=== PATIENT | male | born 1930 | race Caucasian/White ===

== ENCOUNTER → 2016-07-01 | Outpatient (REF) ==
[~2016-07-01] MED LIST: AMOXICILLIN 50500 MG PO; ASPI325T6 PO; ASPIR-LOW81 MG PO; ASPIR-LOX325 MG PO; ASPIRIN 81M81 MG/TA2 PO; ASPIRIN E.C. 8181 MG PO; BACTRIM DS 8001 TAB PO; BETAPACE 80MG80 MG PO; CALCIUM; CEFTIN 250250 MG/TAB PO; CEPHALEXIN250 M1 PO; CEPHALEXIN500 M1 PO; CIPRO 500MG TA500 MG PO; COLACE 100100 MG/CAP PO; DOXAZOCIN; EYE DROPS; FLAGYL500 MG PO; FLOMAX 0.40.4 MG/CAP PO; GLUCOSAMINE & C1 CAP PO; GLYCOLAX17 GM/PACK PO; HCTZ; HCTZ 25MG TAB25 MG PO; IPRATROPIUM BROM3 M1 IH; LASIX 20MG TABL20 MG PO; LASIX 40MG TABL40 MG PO; LEVAQUIN 5500 MG/TA1 PO; LEVAQUIN 750MG750 M1 PO; LIPITOR 10MG10 MG PO; LIPITOR 80MG80 MG PO; LOPRESSOR 225 MG/TAB PO; LOVENOX 4040 MG/0.4 SQ; MACRODANTIN100 PO; MIRALAX PA17 GM/Dose PO; MULTAQ400 MG PO; NEURONTIN100 MG/CAP PO; NEURONTIN300 MG/CAP PO; NITROSTAT0.4 MG/TAB SL; NORCO 325 MG-51 TAB PO; NORCO 325 MG-7.1 TAB PO; NORVASC 10MG10 MG PO; NORVASC 5MG5 MG/TAB PO; PLAVIX 75MG TAB75 MG PO; PRAVACHOL 20MG20 MG PO; PREDNISONE20 MG PO; PROTONIX 40MG T40 MG PO; PROTONIX20 MG PO; TESSALON P100 MG/CAP PO; TYLENOL 325MG325 MG PO; ULTRAM 50MG TAB50 MG PO; ZEBETA 5MG5 MG PO; ZESTRIL40 MG PO
[2016-07-01 09:34] LABS: BASO # 0.1 (0.0-0.2); BASO % 1.1 % (0.0-2.0); EOS % 12.1 % (0-4.0); GRAN # 5.4 (1.4-6.5); GRAN % 64.7 % (42.2-75.2); LYMPH % 11.7 % (20.0-51.0); MEAN CELL VOLUME 91 fl (80.0-100.0); MEAN CORPUSCULAR HGB CONC 33 g/dl (33.0-37.0); MEAN PLATELET VOLUME 9.5 fl (7.4-10.4); MONO # 0.8 (0.1-0.6); MONO % 9.3 % (1.7-9.3); PLATELET COUNT 424 K/mm3 (130-400); RED BLOOD COUNT 3.02 M/mm3 (4.20-5.60); REDCELL DISTRIBUTION WIDTH-CV 15.8 % (11.5-14.5); WHITE BLOOD COUNT 8.4 K/mm3 (4.8-10.8)
[2016-07-01 09:38] LABS: ADJUSTED CALCIUM 9.5 mg/dL (8.4-10.2); ALBUMIN 2.6 gm/dL (3.5-5.0); BILIRUBIN,TOTAL 0.7 mg/dL (0.0-1.0); CALCIUM 8.4 mg/dL (8.4-10.2); CREATININE, serum 1.2 mg/dL (0.66-1.25); POTASSIUM 3.5 mmol/L (3.4-5.0); TOTAL PROTEIN 5.5 gm/dL (6.4-8.2)
[2016-07-01 09:39] LABS: HEMATOCRIT 27.4 % (42.0-52.0); HEMOGLOBIN 8.9 g/dl (13.5-18.0); MEAN CORPUSCULAR HEMOGLOBIN 29 pg (27.0-31.0)
[2016-07-01 10:11] LABS: C-REACTIVE PROTEIN 2.3 mg/dL (0.0-0.9)
== END ==
LOC: ZLAB.STJ 09:22
DX: Z01.89 Encounter for other specified special examinations (principal)

== ENCOUNTER → 2016-07-04 | Outpatient (REF) ==
[2016-07-04 12:35] LABS: INFLUENZA B NEGATIVE
== END ==
LOC: ZLAB.STJ 12:10
PROVIDERS: Internal Medicine
DX: Z01.89 Encounter for other specified special examinations (principal)

== ENCOUNTER → 2016-07-07 | Outpatient (REF) ==
[2016-07-07 14:25] LABS: BASO % 0.5 % (0.0-2.0); EOS # 0.3 (0.0-0.7); EOS % 5.1 % (0-4.0); GRAN # 4.4 (1.4-6.5); GRAN % 74.4 % (42.2-75.2); LYMPH # 0.6 (1.2-3.4); LYMPH % 10.8 % (20.0-51.0); MEAN CELL VOLUME 93 fl (80.0-100.0); MEAN CORPUSCULAR HGB CONC 32 g/dl (33.0-37.0); MONO # 0.5 (0.1-0.6); MONO % 8.5 % (1.7-9.3); PLATELET COUNT 370 K/mm3 (130-400); RED BLOOD COUNT 3.32 M/mm3 (4.20-5.60); REDCELL DISTRIBUTION WIDTH-CV 15.2 % (11.5-14.5); WHITE BLOOD COUNT 5.9 K/mm3 (4.8-10.8)
[2016-07-07 14:38] LABS: ALBUMIN 2.9 gm/dL (3.5-5.0); BILIRUBIN,TOTAL 0.7 mg/dL (0.0-1.0); C-REACTIVE PROTEIN 2.5 mg/dL (0.0-0.9); CALCIUM 8.1 mg/dL (8.4-10.2); CREATININE, serum 1.45 mg/dL (0.66-1.25); POTASSIUM 3.6 mmol/L (3.4-5.0); TOTAL PROTEIN 6.2 gm/dL (6.4-8.2)
[2016-07-07 14:55] LABS: HEMATOCRIT 30.8 % (42.0-52.0); HEMOGLOBIN 9.8 g/dl (13.5-18.0); MEAN CORPUSCULAR HEMOGLOBIN 30 pg (27.0-31.0)
== END ==
LOC: ZLAB.STJ 14:22
PROVIDERS: Internal Medicine
DX: Z01.89 Encounter for other specified special examinations (principal)

== ENCOUNTER → 2016-07-14 | Outpatient (REF) ==
[2016-07-14 09:41] LABS: ADJUSTED CALCIUM 9.1 mg/dL (8.4-10.2); ALANINE AMINOTRANSFERASE 36 U/L (21-72); ALKALINE PHOSPHATASE 90 U/L (50-136); ANION GAP 8 mmol/L (7-16); BILIRUBIN,TOTAL 0.8 mg/dL (0.0-1.0); BLOOD UREA NITROGEN 28 mg/dL (9-20); C-REACTIVE PROTEIN 1.5 mg/dL (0.0-0.9); CALCIUM 8.3 mg/dL (8.4-10.2); CARBON DIOXIDE 28 mmol/L (22-30); CHLORIDE 101 mmol/L (98-107); CREATININE, serum 1.27 mg/dL (0.66-1.25); GLUCOSE 90 mg/dL (74-106); POTASSIUM 3.8 mmol/L (3.4-5.0); SODIUM 138 mmol/L (137-145); TOTAL PROTEIN 6.5 gm/dL (6.4-8.2)
[2016-07-14 09:46] LABS: CREATINE KINASE < 20 U/L (55-170)
== END ==
LOC: ZLAB.STJ 09:14
PROVIDERS: Internal Medicine
DX: Z01.89 Encounter for other specified special examinations (principal)

== ENCOUNTER → 2016-07-15 | Outpatient (REF) ==
[2016-07-15 09:02] LABS: BASO # 0.1 (0.0-0.2); BASO % 0.5 % (0.0-2.0); EOS % 10.8 % (0-4.0); GRAN # 5.8 (1.4-6.5); GRAN % 62.8 % (42.2-75.2); LYMPH # 1.5 (1.2-3.4); LYMPH % 16.1 % (20.0-51.0); MEAN CELL VOLUME 91 fl (80.0-100.0); MEAN CORPUSCULAR HGB CONC 32 g/dl (33.0-37.0); MONO # 0.7 (0.1-0.6); PLATELET COUNT 403 K/mm3 (130-400); RED BLOOD COUNT 3.93 M/mm3 (4.20-5.60); REDCELL DISTRIBUTION WIDTH-CV 15.4 % (11.5-14.5); WHITE BLOOD COUNT 9.2 K/mm3 (4.8-10.8)
[2016-07-15 09:08] LABS: HEMATOCRIT 35.9 % (42.0-52.0); HEMOGLOBIN 11.4 g/dl (13.5-18.0); MEAN CORPUSCULAR HEMOGLOBIN 29 pg (27.0-31.0)
== END ==
LOC: ZLAB.STJ 08:58
PROVIDERS: Internal Medicine
DX: Z01.89 Encounter for other specified special examinations (principal)

== ENCOUNTER → 2016-07-29 | Outpatient (CLI) | payer MEDICARE, BC, OTHER | LOC: COL.RAD 11:41 | DX: J84.9 Interstitial pulmonary disease, unspecified (principal) ==

== ENCOUNTER → 2016-09-05 | Outpatient (CLI) | payer MEDICARE, BC | LOC: COL.RAD 14:50 | DX: R06.02 Shortness of breath (principal); J84.10 Pulmonary fibrosis, unspecified; J98.4 Other disorders of lung ==

== ENCOUNTER 2016-12-14 06:15 | Emergency (ER) | payer MEDICARE, BC ==
[~2016-12-14] VITALS: Ht 195.6 cm; Wt 87.7 kg
[~2016-12-14 06:15] MED LIST changes: -AMOXICILLIN 50500 MG PO; -BACTRIM DS 8001 TAB PO; -BETAPACE 80MG80 MG PO; -CEFTIN 250250 MG/TAB PO
[2016-12-14 06:17] VITALS: TEMP 97.4
[2016-12-14 07:18] LABS: BASO # 0.1 (0.0-0.2); EOS # 0.3 (0.0-0.7); EOS % 4.2 % (0-4.0); GRAN # 4.9 (1.4-6.5); GRAN % 66.2 % (42.2-75.2); HEMATOCRIT 40.7 % (42.0-52.0); HEMOGLOBIN 12.8 g/dl (13.5-18.0); LYMPH # 1.2 (1.2-3.4); LYMPH % 16.9 % (20.0-51.0); MEAN CELL VOLUME 84 fl (80.0-100.0); MEAN CORPUSCULAR HEMOGLOBIN 26 pg (27.0-31.0); MEAN CORPUSCULAR HGB CONC 31 g/dl (33.0-37.0); MEAN PLATELET VOLUME 10.4 fl (7.4-10.4); MONO # 0.8 (0.1-0.6); MONO % 10.9 % (1.7-9.3); PLATELET COUNT 332 K/mm3 (130-400); RED BLOOD COUNT 4.85 M/mm3 (4.20-5.60); REDCELL DISTRIBUTION WIDTH-CV 17.2 % (11.5-14.5); WHITE BLOOD COUNT 7.3 K/mm3 (4.8-10.8)
[2016-12-14 07:22] LABS: ADJUSTED CALCIUM 9.1 mg/dL (8.4-10.2); ALBUMIN 3.3 gm/dL (3.5-5.0); BILIRUBIN,TOTAL 1.1 mg/dL (0.0-1.0); CALCIUM 8.5 mg/dL (8.4-10.2); CREATININE, serum 1.75 mg/dL (0.66-1.25); POTASSIUM 4.3 mmol/L (3.4-5.0); TOTAL PROTEIN 6.2 gm/dL (6.4-8.2)
[2016-12-14 07:34] LABS: TROPONIN-I 0.017 ng/mL (0.000-0.034)
[2016-12-14 08:45] LABS: PH 5 (5-8); SQUAMOUS EPITHELIAL None Seen /hpf; URINE APPEARANCE Clear; URINE BACTERIA None Seen /hpf; URINE BILIRUBIN Negative (NEGATIVE); URINE BLOOD 1+ (NEGATIVE); URINE COLOR Yellow; URINE GLUCOSE Negative (NEGATIVE); URINE KETONE Negative (NEGATIVE); URINE UROBILINOGEN Negative (NEGATIVE)
[2016-12-14] MEDS ORDERED: FLOMAX 0.40.4 MG/CAP PO (09:06)
[2016-12-14] MEDS ORDERED: BACTRIM DS 8001 TAB PO (09:06)
[2016-12-14 09:22] VITALS: BP 119/72; PULSE 65
== END 2016-12-14 09:26 | disposition home or self-care (01) ==
LOC: COL.ER 06:15
PROVIDERS: Emergency Medicine
DX: N39.0 Urinary tract infection, site not specified (principal); N40.1 Benign prostatic hyperplasia with lower urinary tract symptoms; N13.8 Other obstructive and reflux uropathy; I11.0 Hypertensive heart disease with heart failure; I50.9 Heart failure, unspecified; J44.9 Chronic obstructive pulmonary disease, unspecified; Z87.891 Personal history of nicotine dependence; I42.9 Cardiomyopathy, unspecified; I25.10 Atherosclerotic heart disease of native coronary artery without angina pectoris; Z95.5 Presence of coronary angioplasty implant and graft; Z95.0 Presence of cardiac pacemaker

== ENCOUNTER 2016-12-19 22:48 | Emergency (ER) | payer MEDICARE, BC ==
[~2016-12-19] VITALS: Ht 195.6 cm; Wt 87.7 kg
[~2016-12-19 22:48] MED LIST changes: +BACTRIM DS 8001 TAB PO
[2016-12-19 22:52] VITALS: TEMP 97.4
[2016-12-20 00:25] VITALS: BP 117/96; PULSE 67
== END 2016-12-20 00:25 | disposition home or self-care (01) ==
LOC: COL.ER 22:48
DX: N40.1 Benign prostatic hyperplasia with lower urinary tract symptoms (principal); R33.8 Other retention of urine; I10 Essential (primary) hypertension; J84.10 Pulmonary fibrosis, unspecified; I73.9 Peripheral vascular disease, unspecified; Z95.5 Presence of coronary angioplasty implant and graft; I25.10 Atherosclerotic heart disease of native coronary artery without angina pectoris; Z95.2 Presence of prosthetic heart valve; Z79.02 Long term (current) use of antithrombotics/antiplatelets

== ENCOUNTER 2016-12-30 19:25 | Inpatient (IN) | payer MEDICARE, BC ==
[~2016-12-30] VITALS: Ht 195.6 cm; Wt 94.7 kg
[2016-12-30 20:06] LABS: ALLEN TEST YES; ARTERIAL BLD GAS TCO2 CT 19.3; ARTERIAL BLOOD GAS BASE EXCESS -4.7 (-2-2); ARTERIAL BLOOD GAS HCO3 18.5 meq/L (22-26); ARTERIAL BLOOD GAS PO2 81.7 mmHg (80-100); ARTERIAL BLOOD GAS pH 7.42 (7.35-7.45); ATS? YES; OXYHEMOGLOBIN 94.9 %
[2016-12-30 20:10] LABS: BASO # 0.1 (0.0-0.2); BASO % 1.1 % (0.0-2.0); EOS # 0.3 (0.0-0.7); EOS % 4.2 % (0-4.0); GRAN # 5.5 (1.4-6.5); GRAN % 67.9 % (42.2-75.2); HEMATOCRIT 42.9 % (42.0-52.0); HEMOGLOBIN 13.8 g/dl (13.5-18.0); LYMPH # 1.3 (1.2-3.4); LYMPH % 16.5 % (20.0-51.0); MEAN CELL VOLUME 84 fl (80.0-100.0); MEAN CORPUSCULAR HEMOGLOBIN 27 pg (27.0-31.0); MEAN CORPUSCULAR HGB CONC 32 g/dl (33.0-37.0); MEAN PLATELET VOLUME 9.8 fl (7.4-10.4); MONO # 0.8 (0.1-0.6); MONO % 9.4 % (1.7-9.3); PLATELET COUNT 359 K/mm3 (130-400); REDCELL DISTRIBUTION WIDTH-CV 17.9 % (11.5-14.5)
[2016-12-30 20:17] LABS: INR 1.2 (0.8-3.0); PROTHROMBIN TIME 12.9 SECONDS (9.7-12.8)
[2016-12-30 20:19] LABS: ADJUSTED CALCIUM 8.7 mg/dL (8.4-10.2); ALBUMIN 3.7 gm/dL (3.5-5.0); BILIRUBIN,TOTAL 0.8 mg/dL (0.0-1.0); CALCIUM 8.5 mg/dL (8.4-10.2); CREATININE, serum 1.63 mg/dL (0.66-1.25); POTASSIUM 5.1 mmol/L (3.4-5.0); TOTAL PROTEIN 6.9 gm/dL (6.4-8.2)
[2016-12-30 20:20] LABS: PARTIAL THROMBOPLASTIN TIME 33.7 SECONDS (26.0-37.0)
[2016-12-30 20:30] LABS: TROPONIN-I 0.028 ng/mL (0.000-0.034)
[2016-12-30 20:38] LABS: PH 5 (5-8); SQUAMOUS EPITHELIAL 0-2 /hpf; URINE APPEARANCE Cloudy; URINE BACTERIA Rare /hpf; URINE BILIRUBIN Negative (NEGATIVE); URINE BLOOD 3+ (NEGATIVE); URINE COLOR Yellow; URINE GLUCOSE Negative (NEGATIVE); URINE KETONE Negative (NEGATIVE); URINE RBC >50 /hpf; URINE UROBILINOGEN Negative (NEGATIVE)
[2016-12-30 20:46] LABS: URINE WBC >50 /hpf
[2016-12-30 21:00] VITALS: BP 135/91; PULSE 59
[2016-12-30] MEDS ORDERED: CEPHALEXIN500 M1 PO (21:18)
[2016-12-30 22:20] VITALS: BP 123/78; PULSE 63; TEMP 97.9
[2016-12-31 03:29] VITALS: BP 124/65; PULSE 64; TEMP 98
[2016-12-31 07:22] LABS: HEMATOCRIT 40.6 % (42.0-52.0); HEMOGLOBIN 12.8 g/dl (13.5-18.0); MEAN CELL VOLUME 85 fl (80.0-100.0); MEAN CORPUSCULAR HEMOGLOBIN 27 pg (27.0-31.0); MEAN CORPUSCULAR HGB CONC 32 g/dl (33.0-37.0); MEAN PLATELET VOLUME 10.1 fl (7.4-10.4); PLATELET COUNT 301 K/mm3 (130-400); RED BLOOD COUNT 4.77 M/mm3 (4.20-5.60); WHITE BLOOD COUNT 7.7 K/mm3 (4.8-10.8)
[2016-12-31 07:57] LABS: CALCIUM 8.4 mg/dL (8.4-10.2); CREATININE, serum 1.48 mg/dL (0.66-1.25); POTASSIUM 4.7 mmol/L (3.4-5.0)
[2016-12-31 07:58] LABS: PHOSPHOROUS 4.3 mg/dL (2.5-4.5)
[2016-12-31 07:59] VITALS: BP 135/63; PULSE 61; TEMP 97.6
[2016-12-31 11:23] VITALS: BP 117/71; PULSE 58; TEMP 98.2
[2016-12-31 15:33] VITALS: BP 105/67; BP 82/42; PULSE 80; TEMP 98.1
[2016-12-31 20:18] VITALS: BP 92/67; PULSE 77; TEMP 97.8
[2017-01-01] VITALS (8 sets, daily range): BP systolic 87–138; BP diastolic 50–78; PULSE 62–86; TEMP 97.5–99.8
[2017-01-01 06:18] LABS: BASO # 0.1 (0.0-0.2); BASO % 1.1 % (0.0-2.0); EOS # 0.3 (0.0-0.7); EOS % 5.1 % (0-4.0); GRAN # 4.3 (1.4-6.5); GRAN % 68.4 % (42.2-75.2); HEMATOCRIT 38.9 % (42.0-52.0); HEMOGLOBIN 12.5 g/dl (13.5-18.0); LYMPH % 15.5 % (20.0-51.0); MEAN CELL VOLUME 85 fl (80.0-100.0); MEAN CORPUSCULAR HEMOGLOBIN 27 pg (27.0-31.0); MEAN CORPUSCULAR HGB CONC 32 g/dl (33.0-37.0); MONO # 0.6 (0.1-0.6); MONO % 8.9 % (1.7-9.3); PLATELET COUNT 280 K/mm3 (130-400); RED BLOOD COUNT 4.59 M/mm3 (4.20-5.60); REDCELL DISTRIBUTION WIDTH-CV 18.1 % (11.5-14.5); WHITE BLOOD COUNT 6.3 K/mm3 (4.8-10.8)
[2017-01-01 06:27] LABS: CALCIUM 7.9 mg/dL (8.4-10.2); CREATININE, serum 1.39 mg/dL (0.66-1.25); POTASSIUM 4.3 mmol/L (3.4-5.0)
[2017-01-02 03:13] VITALS: BP 125/75; PULSE 60; TEMP 97.5
[2017-01-02 06:27] LABS: CREATININE, serum 1.2 mg/dL (0.66-1.25)
[2017-01-02 06:49] LABS: CALCIUM 8.1 mg/dL (8.4-10.2); POTASSIUM 4.7 mmol/L (3.4-5.0)
[2017-01-02 07:35] VITALS: BP 136/73; PULSE 66; TEMP 97.4
[2017-01-02] MEDS ORDERED: CEFTIN 250250 MG/TAB PO (10:08)
[2017-01-02 11:10] VITALS: BP 131/70; PULSE 59; TEMP 97.5
== END 2017-01-02 15:45 | disposition home health service (06) | DRG 641 ==
LOC: COL.ER 19:25 → MEDICAL 21:01
PROVIDERS: Emergency Medicine; Internal Medicine; Nurse Practitioner Family; Physician Assistant
DX: E87.1 Hypo-osmolality and hyponatremia (principal); N39.0 Urinary tract infection, site not specified; J96.10 Chronic respiratory failure, unspecified whether with hypoxia or hypercapnia; I25.2 Old myocardial infarction; E78.5 Hyperlipidemia, unspecified; J84.10 Pulmonary fibrosis, unspecified; I12.9 Hypertensive chronic kidney disease with stage 1 through stage 4 chronic kidney disease, or unspecified chronic kidney disease; N18.3 Chronic kidney disease, stage 3 (moderate); E86.1 Hypovolemia; Z95.5 Presence of coronary angioplasty implant and graft; Z95.0 Presence of cardiac pacemaker; Z86.73 Personal history of transient ischemic attack (TIA), and cerebral infarction without residual deficits; Z87.891 Personal history of nicotine dependence; Z95.2 Presence of prosthetic heart valve
CPT/HCPCS: 99222-AI; 99233-AI; 99239; J0696; J1644; J1940; J2270; J7030

== ENCOUNTER → 2017-01-05 | Outpatient (CLI) | payer MEDICARE, BC ==
[~2017-01-05] MED LIST changes: +AMOXICILLIN 50500 MG PO; +BETAPACE 80MG80 MG PO; +CEFTIN 250250 MG/TAB PO
[2017-01-05 13:38] LABS: CALCIUM 8.6 mg/dL (8.4-10.2); CREATININE, serum 1.46 mg/dL (0.66-1.25); POTASSIUM 4.7 mmol/L (3.4-5.0)
== END ==
LOC: COL.LAB 13:03
PROVIDERS: Nurse Practitioner Family
DX: E87.1 Hypo-osmolality and hyponatremia (principal)

== ENCOUNTER 2017-01-29 15:52 | Inpatient (IN) | payer MEDICARE, BC ==
[~2017-01-29] VITALS: Ht 195.6 cm; Wt 88.9 kg
[~2017-01-29 15:52] MED LIST changes: -AMOXICILLIN 50500 MG PO; -BETAPACE 80MG80 MG PO
[2017-01-29 16:38] LABS: BASO # 0.1 (0.0-0.2); BASO % 1.1 % (0.0-2.0); EOS # 0.3 (0.0-0.7); EOS % 3.5 % (0-4.0); GRAN # 4.9 (1.4-6.5); GRAN % 68.7 % (42.2-75.2); HEMATOCRIT 40.4 % (42.0-52.0); HEMOGLOBIN 12.5 g/dl (13.5-18.0); LYMPH # 1.2 (1.2-3.4); LYMPH % 16.9 % (20.0-51.0); MEAN CELL VOLUME 89 fl (80.0-100.0); MEAN CORPUSCULAR HEMOGLOBIN 28 pg (27.0-31.0); MEAN CORPUSCULAR HGB CONC 31 g/dl (33.0-37.0); MEAN PLATELET VOLUME 10.6 fl (7.4-10.4); MONO # 0.7 (0.1-0.6); MONO % 9.2 % (1.7-9.3); PLATELET COUNT 319 K/mm3 (130-400); RED BLOOD COUNT 4.55 M/mm3 (4.20-5.60); REDCELL DISTRIBUTION WIDTH-CV 18.3 % (11.5-14.5); WHITE BLOOD COUNT 7.2 K/mm3 (4.8-10.8)
[2017-01-29] MEDS ORDERED: NEURONTIN300 MG/CAP PO (16:38)
[2017-01-29 16:55] LABS: ADJUSTED CALCIUM 8.9 mg/dL (8.4-10.2); ALBUMIN 3.4 gm/dL (3.5-5.0); BILIRUBIN,TOTAL 0.9 mg/dL (0.0-1.0); CALCIUM 8.4 mg/dL (8.4-10.2); CREATININE, serum 1.65 mg/dL (0.66-1.25); POTASSIUM 4.6 mmol/L (3.4-5.0); TOTAL PROTEIN 6.4 gm/dL (6.4-8.2)
[2017-01-29 17:06] LABS: TROPONIN-I 0.018 ng/mL (0.000-0.034)
[2017-01-29 17:20] LABS: PH 5 (5-8); SQUAMOUS EPITHELIAL None Seen /hpf; URINE APPEARANCE Hazy; URINE BACTERIA Rare /hpf; URINE BILIRUBIN Negative (NEGATIVE); URINE BLOOD 1+ (NEGATIVE); URINE COLOR Yellow; URINE GLUCOSE Negative (NEGATIVE); URINE KETONE Negative (NEGATIVE); URINE RBC 0-2 /hpf; URINE UROBILINOGEN Negative (NEGATIVE)
[2017-01-29 17:24] LABS: URINE WBC 20-50 /hpf
[2017-01-29 20:58] VITALS: BP 138/81; PULSE 61; TEMP 97.8
[2017-01-30] VITALS (7 sets, daily range): BP systolic 99–132; BP diastolic 68–79; PULSE 52–87; TEMP 97.2–98.7
[2017-01-30 04:42] LABS: BASO # 0.1 (0.0-0.2); BASO % 0.8 % (0.0-2.0); EOS # 0.3 (0.0-0.7); EOS % 5.1 % (0-4.0); GRAN # 4.1 (1.4-6.5); GRAN % 63.2 % (42.2-75.2); HEMATOCRIT 37.2 % (42.0-52.0); LYMPH # 1.3 (1.2-3.4); LYMPH % 19.6 % (20.0-51.0); MEAN CELL VOLUME 87 fl (80.0-100.0); MEAN CORPUSCULAR HGB CONC 32 g/dl (33.0-37.0); MEAN PLATELET VOLUME 10.4 fl (7.4-10.4); MONO # 0.7 (0.1-0.6); MONO % 10.8 % (1.7-9.3); PLATELET COUNT 279 K/mm3 (130-400); RED BLOOD COUNT 4.26 M/mm3 (4.20-5.60); WHITE BLOOD COUNT 6.5 K/mm3 (4.8-10.8)
[2017-01-30 04:44] LABS: HEMOGLOBIN 11.7 g/dl (13.5-18.0); MEAN CORPUSCULAR HEMOGLOBIN 27 pg (27.0-31.0)
[2017-01-30 04:52] LABS: CALCIUM 8.2 mg/dL (8.4-10.2); CREATININE, serum 1.57 mg/dL (0.66-1.25); POTASSIUM 3.8 mmol/L (3.4-5.0)
[2017-01-31 03:12] VITALS: BP 108/06; PULSE 63; TEMP 98.3
[2017-01-31 06:34] LABS: BASO # 0.1 (0.0-0.2); BASO % 0.9 % (0.0-2.0); EOS # 0.4 (0.0-0.7); GRAN # 4.7 (1.4-6.5); GRAN % 66.5 % (42.2-75.2); HEMATOCRIT 37.4 % (42.0-52.0); LYMPH # 1.1 (1.2-3.4); LYMPH % 16.1 % (20.0-51.0); MEAN CELL VOLUME 89 fl (80.0-100.0); MEAN CORPUSCULAR HEMOGLOBIN 27 pg (27.0-31.0); MEAN CORPUSCULAR HGB CONC 31 g/dl (33.0-37.0); MEAN PLATELET VOLUME 10.7 fl (7.4-10.4); MONO # 0.7 (0.1-0.6); MONO % 10.1 % (1.7-9.3); PLATELET COUNT 271 K/mm3 (130-400); RED BLOOD COUNT 4.21 M/mm3 (4.20-5.60); REDCELL DISTRIBUTION WIDTH-CV 18.2 % (11.5-14.5)
[2017-01-31 06:35] LABS: HEMOGLOBIN 11.5 g/dl (13.5-18.0)
[2017-01-31 06:49] LABS: CALCIUM 8.1 mg/dL (8.4-10.2); CREATININE, serum 1.59 mg/dL (0.66-1.25); POTASSIUM 4.3 mmol/L (3.4-5.0)
[2017-01-31 08:13] VITALS: BP 114/64; PULSE 62; TEMP 97.6
[2017-01-31 12:21] VITALS: BP 99/60; PULSE 63; TEMP 98.2
[2017-01-31 16:09] VITALS: BP 99/48; PULSE 61; TEMP 98.1
[2017-01-31 19:29] VITALS: BP 113/58; PULSE 73; TEMP 97.8
[2017-01-31 23:07] VITALS: BP 94/50; PULSE 117; TEMP 97.1
[2017-02-01 03:31] VITALS: BP 98/61; PULSE 65; TEMP 97.5
[2017-02-01 07:26] LABS: BASO # 0.1 (0.0-0.2); BASO % 0.8 % (0.0-2.0); EOS # 0.5 (0.0-0.7); GRAN # 3.7 (1.4-6.5); GRAN % 60.9 % (42.2-75.2); LYMPH # 1.1 (1.2-3.4); LYMPH % 17.8 % (20.0-51.0); MEAN CELL VOLUME 88 fl (80.0-100.0); MEAN CORPUSCULAR HGB CONC 31 g/dl (33.0-37.0); MEAN PLATELET VOLUME 10.4 fl (7.4-10.4); MONO # 0.7 (0.1-0.6); MONO % 11.4 % (1.7-9.3); PLATELET COUNT 258 K/mm3 (130-400); RED BLOOD COUNT 4.14 M/mm3 (4.20-5.60); REDCELL DISTRIBUTION WIDTH-CV 17.9 % (11.5-14.5); WHITE BLOOD COUNT 6.1 K/mm3 (4.8-10.8)
[2017-02-01 07:35] LABS: HEMATOCRIT 36.6 % (42.0-52.0); HEMOGLOBIN 11.5 g/dl (13.5-18.0); MEAN CORPUSCULAR HEMOGLOBIN 28 pg (27.0-31.0)
[2017-02-01 07:44] LABS: CALCIUM 8.1 mg/dL (8.4-10.2); CREATININE, serum 1.5 mg/dL (0.66-1.25); POTASSIUM 3.9 mmol/L (3.4-5.0)
[2017-02-01 07:55] VITALS: BP 126/76; PULSE 68; TEMP 97
[2017-02-01 11:21] VITALS: BP 110/64; PULSE 57; TEMP 98.4
[2017-02-01 15:06] VITALS: BP 124/64; PULSE 58; TEMP 97.5
[2017-02-01 19:59] VITALS: BP 124/68; PULSE 56; TEMP 97.4
[2017-02-02 00:01] VITALS: BP 126/85; PULSE 67; TEMP 98.1
[2017-02-02 04:20] VITALS: BP 133/81; PULSE 67; TEMP 97.9
[2017-02-02 07:46] VITALS: BP 135/83; PULSE 59; TEMP 97.5
[2017-02-02 08:01] LABS: CALCIUM 8.4 mg/dL (8.4-10.2); CREATININE, serum 1.46 mg/dL (0.66-1.25); POTASSIUM 4.2 mmol/L (3.4-5.0)
[2017-02-02 12:34] VITALS: BP 120/66; PULSE 61; TEMP 97.8
[2017-02-02 16:14] VITALS: BP 134/72; PULSE 63; TEMP 97.6
[2017-02-02 20:50] VITALS: BP 135/83; PULSE 60; TEMP 97
[2017-02-03 00:13] VITALS: BP 125/70; PULSE 68; TEMP 98.1
[2017-02-03 03:38] VITALS: BP 129/89; PULSE 66; TEMP 98.2
[2017-02-03 07:47] LABS: CALCIUM 8.3 mg/dL (8.4-10.2); CREATININE, serum 1.4 mg/dL (0.66-1.25); MAGNESIUM 1.9 mg/dL (1.6-2.3); POTASSIUM 4.2 mmol/L (3.4-5.0)
[2017-02-03 08:04] VITALS: BP 141/78; PULSE 64; TEMP 98.3
[2017-02-03] MEDS ORDERED: AMOXICILLIN 50500 MG PO (08:31)
[2017-02-03] MEDS ORDERED: BETAPACE 80MG80 MG PO (09:44)
[2017-02-03] MEDS ORDERED: LASIX 40MG TABL40 MG PO (10:08)
== END 2017-02-03 15:02 | disposition home health service (06) | DRG 291 ==
LOC: COL.ER 15:52 → MEDICAL 18:20
PROVIDERS: Emergency Medicine; Nurse Practitioner Family; Physician Assistant
DX: I13.0 Hypertensive heart and chronic kidney disease with heart failure and stage 1 through stage 4 chronic kidney disease, or unspecified chronic kidney disease (principal); I50.23 Acute on chronic systolic (congestive) heart failure; J96.21 Acute and chronic respiratory failure with hypoxia; T83.518A Infection and inflammatory reaction due to other urinary catheter, initial encounter; E87.1 Hypo-osmolality and hyponatremia; N18.3 Chronic kidney disease, stage 3 (moderate); I25.10 Atherosclerotic heart disease of native coronary artery without angina pectoris; Z95.5 Presence of coronary angioplasty implant and graft; J84.10 Pulmonary fibrosis, unspecified; Z95.2 Presence of prosthetic heart valve; Z87.891 Personal history of nicotine dependence; I25.5 Ischemic cardiomyopathy; Z95.810 Presence of automatic (implantable) cardiac defibrillator
CPT/HCPCS: 99223-AI; 99232-AI; 99233-AI; 99239; A4315; J0696; J1644; J1940

== ENCOUNTER → 2017-03-03 | Outpatient (CLI) | payer MEDICARE, BC ==
[~2017-03-03] MED LIST changes: +AMOXICILLIN 50500 MG PO; +BETAPACE 80MG80 MG PO
== END ==
LOC: MHCPAIN 13:09
DX: G89.29 Other chronic pain (principal); M47.27 Other spondylosis with radiculopathy, lumbosacral region; M53.3 Sacrococcygeal disorders, not elsewhere classified; M41.9 Scoliosis, unspecified; Z79.82 Long term (current) use of aspirin
CPT/HCPCS: G0463

== ENCOUNTER → 2017-03-19 | Outpatient (CLI) | payer MEDICARE, BC | LOC: COL.RAD 03-10 13:30 | DX: M47.26 Other spondylosis with radiculopathy, lumbar region (principal); M85.88 Other specified disorders of bone density and structure, other site ==

== ENCOUNTER → 2017-05-12 | Outpatient (CLI) | payer MEDICARE, BC | LOC: MHCPAIN 15:01 | DX: G89.29 Other chronic pain (principal); M47.27 Other spondylosis with radiculopathy, lumbosacral region; M41.9 Scoliosis, unspecified | CPT/HCPCS: G0463 ==

== ENCOUNTER → 2017-06-18 | Outpatient (CLI) | payer MEDICARE, BC | LOC: MHCPAIN 10:15 | DX: M47.27 Other spondylosis with radiculopathy, lumbosacral region (principal); M99.53 Intervertebral disc stenosis of neural canal of lumbar region; M41.9 Scoliosis, unspecified | CPT/HCPCS: J1100; Q9967 ==

== ENCOUNTER → 2017-07-03 | Outpatient (CLI) | payer MEDICARE, BC | LOC: MHCPAIN 12:05 | DX: G89.29 Other chronic pain (principal); M47.27 Other spondylosis with radiculopathy, lumbosacral region; M53.3 Sacrococcygeal disorders, not elsewhere classified; M48.061 Spinal stenosis, lumbar region without neurogenic claudication | CPT/HCPCS: G0463 ==

== ENCOUNTER → 2017-08-26 | Outpatient (CLI) | payer MEDICARE, BC | LOC: MHCPAIN 14:27 | DX: G89.29 Other chronic pain (principal); M47.817 Spondylosis without myelopathy or radiculopathy, lumbosacral region; M54.16 Radiculopathy, lumbar region; M53.3 Sacrococcygeal disorders, not elsewhere classified; M48.061 Spinal stenosis, lumbar region without neurogenic claudication | CPT/HCPCS: G0463 ==

== ENCOUNTER → 2017-09-10 | Outpatient (CLI) | payer MEDICARE, BC | LOC: MHCPAIN 13:40 | DX: M47.817 Spondylosis without myelopathy or radiculopathy, lumbosacral region (principal); M48.061 Spinal stenosis, lumbar region without neurogenic claudication; M41.86 Other forms of scoliosis, lumbar region | CPT/HCPCS: J1040; Q9967 ==

== ENCOUNTER → 2017-10-07 | Outpatient (CLI) | payer MEDICARE, BC | LOC: MHCPAIN 10:35 | DX: G89.29 Other chronic pain (principal); M47.817 Spondylosis without myelopathy or radiculopathy, lumbosacral region; M54.16 Radiculopathy, lumbar region; M53.3 Sacrococcygeal disorders, not elsewhere classified; M48.061 Spinal stenosis, lumbar region without neurogenic claudication; M41.9 Scoliosis, unspecified | CPT/HCPCS: G0463 ==

== ENCOUNTER → 2018-02-08 | Outpatient (CLI) | payer MEDICARE, BC | LOC: MHCPAIN 10:35 | DX: G89.29 Other chronic pain (principal); M47.817 Spondylosis without myelopathy or radiculopathy, lumbosacral region; M54.16 Radiculopathy, lumbar region; M53.3 Sacrococcygeal disorders, not elsewhere classified; M41.9 Scoliosis, unspecified; M48.061 Spinal stenosis, lumbar region without neurogenic claudication | CPT/HCPCS: G0463 ==

== ENCOUNTER 2018-04-21 15:54 | Inpatient (IN) | payer MEDICARE, BC ==
[~2018-04-21] VITALS: Ht 195.6 cm; Wt 84.6 kg
[2018-04-21] VITALS (292 sets, daily range): BP systolic 106–131; BP diastolic 94–100; PULSE 67–92; TEMP 97.3–97.4; O2SAT 64–100
[2018-04-21 16:10] LABS: BASO # 0.1 (0.0-0.2); BASO % 0.7 % (0.0-2.0); EOS # 0.4 (0.0-0.7); EOS % 3.2 % (0-4.0); GRAN # 9.4 (1.4-6.5); GRAN % 68.6 % (42.2-75.2); HEMOGLOBIN 16.9 g/dl (13.5-18.0); LYMPH # 2.4 (1.2-3.4); LYMPH % 17.3 % (20.0-51.0); MEAN CELL VOLUME 96 fl (80.0-100.0); MEAN CORPUSCULAR HEMOGLOBIN 31 pg (27.0-31.0); MEAN CORPUSCULAR HGB CONC 32 g/dl (33.0-37.0); MEAN PLATELET VOLUME 10.4 fl (7.4-10.4); MONO # 1.3 (0.1-0.6); MONO % 9.5 % (1.7-9.3); PLATELET COUNT 440 K/mm3 (130-400); RED BLOOD COUNT 5.52 M/mm3 (4.20-5.60); REDCELL DISTRIBUTION WIDTH-CV 14.3 % (11.5-14.5)
[2018-04-21 16:11] LABS: HEMATOCRIT 52.8 % (42.0-52.0)
[2018-04-21 16:14] LABS: PROTHROMBIN TIME 11.7 SECONDS (9.7-12.8)
[2018-04-21 16:18] LABS: ALBUMIN 4.3 gm/dL (3.5-5.0); BILIRUBIN,TOTAL 1.4 mg/dL (0.0-1.0); CALCIUM 9.3 mg/dL (8.4-10.2); CREATININE, serum 1.88 mg/dL (0.66-1.25); POTASSIUM 5.1 mmol/L (3.4-5.0); TOTAL PROTEIN 7.6 gm/dL (6.4-8.2)
[2018-04-21 16:36] LABS: TROPONIN-I 0.228 ng/mL (0.000-0.034)
[2018-04-21 16:46] LABS: ARTERIAL BLD GAS O2 SATURATION 96.3 % (92-100); ARTERIAL BLD GAS TCO2 CT 18.8; ARTERIAL BLOOD GAS BASE EXCESS -5.8 (-2-2); ARTERIAL BLOOD GAS HCO3 17.9 meq/L (22-26); ARTERIAL BLOOD GAS PCO2 30.6 mmHg (35-45); ARTERIAL BLOOD GAS PO2 88.6 mmHg (80-100); ARTERIAL BLOOD GAS pH 7.38 (7.35-7.45)
[2018-04-21] MEDS ORDERED: ZEBETA 5MG5 MG PO (17:34)
[2018-04-21] MEDS ORDERED: VITAMIN D31000 I1 PO (17:34)
[2018-04-21] MEDS ORDERED: DULCOLAX STOOL100 MG PO (17:34)
[2018-04-21] MEDS ORDERED: BETAPACE 80MG80 MG PO (17:35)
[2018-04-21] MEDS ORDERED: ASPIRIN 81M81 MG/TA2 PO (17:35)
[2018-04-21] MEDS ORDERED: LIPITOR 80MG80 MG PO (17:36)
[2018-04-21] MEDS ORDERED: PLAVIX 75MG TAB75 MG PO (17:36)
[2018-04-21] MEDS ORDERED: ZANTAC 150MG T150 MG PO (17:36)
[2018-04-21] MEDS ORDERED: FLOMAX 0.40.4 MG/CAP PO (17:37)
[2018-04-21] MEDS ORDERED: LASIX 40MG TABL40 MG PO (17:37)
[2018-04-21] MEDS ORDERED: NEURONTIN300 MG/CAP PO (17:37)
[2018-04-21 22:18] LABS: CALCIUM 7.9 mg/dL (8.4-10.2); CREATININE, serum 1.71 mg/dL (0.66-1.25); POTASSIUM 4.5 mmol/L (3.4-5.0)
[2018-04-21 22:32] LABS: TROPONIN-I 6 HR POST INITIAL 0.672 ng/mL (0.000-0.034)
[2018-04-22] VITALS (1120 sets, daily range): BP systolic 108–141; BP diastolic 58–98; PULSE 59–76; TEMP 97.7–98.8; O2SAT 53–100
[2018-04-22 05:45] LABS: BASO # 0.1 (0.0-0.2); BASO % 0.8 % (0.0-2.0); EOS # 0.3 (0.0-0.7); EOS % 3.5 % (0-4.0); GRAN # 5.3 (1.4-6.5); GRAN % 66.7 % (42.2-75.2); HEMATOCRIT 40.4 % (42.0-52.0); LYMPH # 1.3 (1.2-3.4); LYMPH % 16.8 % (20.0-51.0); MEAN CELL VOLUME 94 fl (80.0-100.0); MEAN CORPUSCULAR HGB CONC 33 g/dl (33.0-37.0); MEAN PLATELET VOLUME 10.4 fl (7.4-10.4); MONO # 0.9 (0.1-0.6); MONO % 11.6 % (1.7-9.3); RED BLOOD COUNT 4.31 M/mm3 (4.20-5.60); REDCELL DISTRIBUTION WIDTH-CV 14.2 % (11.5-14.5)
[2018-04-22 05:47] LABS: HEMOGLOBIN 13.3 g/dl (13.5-18.0); MEAN CORPUSCULAR HEMOGLOBIN 31 pg (27.0-31.0); PLATELET COUNT 296 K/mm3 (130-400)
[2018-04-22 05:59] LABS: BILIRUBIN,TOTAL 0.6 mg/dL (0.0-1.0); CALCIUM 8.1 mg/dL (8.4-10.2); CHOLESTEROL RISK RATIO 2.9; CREATININE, serum 1.49 mg/dL (0.66-1.25); POTASSIUM 4.2 mmol/L (3.4-5.0); TOTAL PROTEIN 5.6 gm/dL (6.4-8.2)
[2018-04-22 06:22] LABS: TROPONIN-I 0.846 ng/mL (0.000-0.034)
[2018-04-22 06:27] LABS: BILIRUBIN UNCONJUGATED 0.4 mg/dL (0.0-1.1); BILIRUBIN,DIRECT 0.2 mg/dL (0.0-0.4)
[2018-04-22 11:18] LABS: CREATININE, serum 1.4 mg/dL (0.66-1.25); FRACTIONAL EXCRETION OF NA+ 0.5 %
[2018-04-22 11:54] LABS: COLLECTION METHOD CATHETER
[2018-04-22 12:31] LABS: PH 5 (5-8); SQUAMOUS EPITHELIAL None Seen /hpf; URINE APPEARANCE Clear; URINE BACTERIA Rare /hpf; URINE BILIRUBIN Negative (NEGATIVE); URINE BLOOD Negative (NEGATIVE); URINE COLOR Yellow; URINE GLUCOSE Negative (NEGATIVE); URINE KETONE Negative (NEGATIVE); URINE LEUKOCYTE ESTERASE Negative (NEGATIVE); URINE NITRATE Negative (NEGATIVE); URINE PROTEIN(semi-quant) Negative (NEGATIVE); URINE RBC 0-2 /hpf; URINE UROBILINOGEN Negative (NEGATIVE)
[2018-04-23] VITALS (365 sets, daily range): BP systolic 116–146; BP diastolic 69–96; PULSE 59–73; TEMP 97–98.6; O2SAT 79–100
[2018-04-23 06:10] LABS: BASO # 0.1 (0.0-0.2); BASO % 0.8 % (0.0-2.0); EOS # 0.3 (0.0-0.7); EOS % 3.9 % (0-4.0); GRAN # 5.5 (1.4-6.5); GRAN % 71.6 % (42.2-75.2); HEMOGLOBIN 13.3 g/dl (13.5-18.0); LYMPH % 12.8 % (20.0-51.0); MEAN CELL VOLUME 94 fl (80.0-100.0); MEAN CORPUSCULAR HEMOGLOBIN 31 pg (27.0-31.0); MEAN CORPUSCULAR HGB CONC 32 g/dl (33.0-37.0); MEAN PLATELET VOLUME 10.2 fl (7.4-10.4); MONO # 0.8 (0.1-0.6); MONO % 10.1 % (1.7-9.3); PLATELET COUNT 303 K/mm3 (130-400); RED BLOOD COUNT 4.36 M/mm3 (4.20-5.60); REDCELL DISTRIBUTION WIDTH-CV 14.2 % (11.5-14.5)
[2018-04-23 06:25] LABS: CALCIUM 8.3 mg/dL (8.4-10.2); CREATININE, serum 1.3 mg/dL (0.66-1.25); POTASSIUM 4.7 mmol/L (3.4-5.0)
[2018-04-23 06:53] LABS: TROPONIN-I 0.363 ng/mL (0.000-0.034)
[2018-04-23] MEDS ORDERED: LASIX 40MG TABL40 MG PO (15:35)
== END 2018-04-23 18:40 | disposition home or self-care (01) | DRG 189 ==
LOC: COL.ER 15:54 → ICU 16:49
PROVIDERS: Emergency Medicine; Hospitalist
DX: J96.21 Acute and chronic respiratory failure with hypoxia (principal); I21.A1 Myocardial infarction type 2; I50.22 Chronic systolic (congestive) heart failure; N17.9 Acute kidney failure, unspecified; I95.9 Hypotension, unspecified; I25.10 Atherosclerotic heart disease of native coronary artery without angina pectoris; Z95.5 Presence of coronary angioplasty implant and graft; N40.0 Benign prostatic hyperplasia without lower urinary tract symptoms; I48.0 Paroxysmal atrial fibrillation; Z95.2 Presence of prosthetic heart valve; N18.3 Chronic kidney disease, stage 3 (moderate); E87.5 Hyperkalemia; I12.9 Hypertensive chronic kidney disease with stage 1 through stage 4 chronic kidney disease, or unspecified chronic kidney disease; E78.5 Hyperlipidemia, unspecified; Z91.81 History of falling; Z86.73 Personal history of transient ischemic attack (TIA), and cerebral infarction without residual deficits; I25.2 Old myocardial infarction; J84.10 Pulmonary fibrosis, unspecified; Z99.81 Dependence on supplemental oxygen; Z66 Do not resuscitate; R79.1 Abnormal coagulation profile; S93.402A Sprain of unspecified ligament of left ankle, initial encounter; W19.XXXA Unspecified fall, initial encounter
CPT/HCPCS: 99223-AI; 99232-AI; 99239; A4216; A9502; J0696; J1644; J2270; J2785; J7030

== ENCOUNTER → 2018-04-28 | Outpatient (REF) ==
[~2018-04-28] MED LIST changes: +DULCOLAX STOOL100 MG PO; +VITAMIN D31000 I1 PO; +ZANTAC 150MG T150 MG PO
== END ==
LOC: ZLAB.WCH 18:10
DX: Z01.89 Encounter for other specified special examinations (principal)

== ENCOUNTER 2018-05-23 17:44 | Emergency (ER) | payer MEDICARE, BC ==
[~2018-05-23] VITALS: Ht 195.6 cm; Wt 82.7 kg
[2018-05-23 17:50] VITALS: TEMP 97.6
[2018-05-23 18:57] LABS: BASO # 0.1 (0.0-0.2); BASO % 0.8 % (0.0-2.0); EOS # 0.3 (0.0-0.7); EOS % 4.8 % (0-4.0); GRAN # 4.1 (1.4-6.5); GRAN % 63.7 % (42.2-75.2); HEMATOCRIT 41.1 % (42.0-52.0); HEMOGLOBIN 13.7 g/dl (13.5-18.0); LYMPH # 1.1 (1.2-3.4); LYMPH % 16.9 % (20.0-51.0); MEAN CELL VOLUME 94 fl (80.0-100.0); MEAN CORPUSCULAR HEMOGLOBIN 31 pg (27.0-31.0); MEAN CORPUSCULAR HGB CONC 33 g/dl (33.0-37.0); MEAN PLATELET VOLUME 9.8 fl (7.4-10.4); MONO # 0.8 (0.1-0.6); MONO % 12.6 % (1.7-9.3); PLATELET COUNT 344 K/mm3 (130-400); RED BLOOD COUNT 4.39 M/mm3 (4.20-5.60); REDCELL DISTRIBUTION WIDTH-CV 15.5 % (11.5-14.5)
[2018-05-23 19:03] LABS: INR 1.2 (0.8-3.0); PROTHROMBIN TIME 13.1 SECONDS (9.7-12.8)
[2018-05-23 19:05] LABS: PARTIAL THROMBOPLASTIN TIME 35.8 SECONDS (26.0-37.0)
[2018-05-23 19:12] LABS: ALBUMIN 3.2 gm/dL (3.5-5.0); BILIRUBIN,TOTAL 0.8 mg/dL (0.0-1.0); CALCIUM 8.4 mg/dL (8.4-10.2); CREATININE, serum 1.11 mg/dL (0.66-1.25); POTASSIUM 4.3 mmol/L (3.4-5.0); TOTAL PROTEIN 5.9 gm/dL (6.4-8.2)
[2018-05-23 19:23] LABS: TROPONIN-I 0.031 ng/mL (0.000-0.034)
[2018-05-23 23:05] VITALS: BP 154/94; PULSE 60
== END 2018-05-23 23:08 | disposition short-term general hospital (02) ==
LOC: COL.ER 17:44
PROVIDERS: Emergency Medicine
DX: I11.0 Hypertensive heart disease with heart failure (principal); I50.9 Heart failure, unspecified; I12.9 Hypertensive chronic kidney disease with stage 1 through stage 4 chronic kidney disease, or unspecified chronic kidney disease; M79.602 Pain in left arm; N18.9 Chronic kidney disease, unspecified; I25.10 Atherosclerotic heart disease of native coronary artery without angina pectoris; Z98.890 Other specified postprocedural states; Z86.73 Personal history of transient ischemic attack (TIA), and cerebral infarction without residual deficits; Z90.49 Acquired absence of other specified parts of digestive tract; Z95.5 Presence of coronary angioplasty implant and graft; Z95.0 Presence of cardiac pacemaker; Z79.02 Long term (current) use of antithrombotics/antiplatelets
CPT/HCPCS: J1940